=== PATIENT | female | born 2000 | race Caucasian/White ===

== ENCOUNTER 2019-12-24 00:45 | Emergency (ER) | payer BC, MEDICAID ==
[~2019-12-24] VITALS: Ht 149.9 cm; Wt 52.6 kg
[~2019-12-24 00:45] MED LIST: ALBUTEROL SULF8.5 GM INH; DIPHENHYDRAMINE25 M1 ORAL; GUAIFENESIN DM118 M1 PO; IBUPROFEN600 MG ORAL; KEFLEX250 MG ORAL; NKM; PREDNISONE20 MG ORAL; PREDNISONE20 MG PO; PROAIR HFA8.5 GM INH; RANITIDINE HCL150 MG ORAL; ZOFRAN ODT4 MG ORAL
[2019-12-24 00:59] VITALS: BP 110/70
--- NOTE | 2019-12-24 01:00 | NUR ---
ED Nurse Note: Patient walked into ED c/o multiple rashes across her body, patient states that she first noticed it about 5 days ago and has moved to different spots in her body. patient denies any drainage coming from said rashes, denies any pain. reports of said patches in her skin being warm. will wait for further orders
[2019-12-24] MEDS ORDERED: BENADRYL25 MG ORAL (01:14)
[2019-12-24] MEDS ORDERED: PREDNISONE20 MG ORAL (01:14)
[2019-12-24] MEDS ORDERED: TRIAMCINOLONE A15 G2 TP (01:14)
--- NOTE | 2019-12-24 01:15 | Emergency Room Report ---
History of Present Illness General Chief Complaint: Skin Rash/Abscess Source: Patient Present Illness [facility] This 19-year-old female with no past medical history. She presents with chief complaint of rash. Initially started on her arm but now seems to be spreading. Now it is on her abdomen and her inner thighs area. Slightly itching. Worse when she scratches. No fever chills with no drainage. Never had this problem before. Nothing anything for this. No new medication. 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 Patient History Past Medical History: see triage record, old chart reviewed Past Surgical History: none Pertinent Family History: none Social History: Denies: smoking Last Menstrual Period: 11/2019 Now: No Immunizations: other Reviewed Nursing Documentation: PMH: Agreed; PSxH: Agreed Nursing Documentation-PMH Past Medical History: No Stated History Hx Asthma: Yes Review of Systems Eye: Denies: eye pain, blurred vision ENT: Denies: ear pain, nose congestion, throat swelling Respiratory: Denies: cough, shortness of breath Cardiovascular: Denies: chest pain, palpitations Gastrointestinal: Denies: abdominal pain, diarrhea, nausea, vomiting Musculoskeletal: Denies: back pain, joint pain Skin: Reports: rash Neurological: Denies: headache, numbness Endocrine: Denies: increased thirst, increased urine Hematologic/Lymphatic: Denies: easy bruising All Other Systems: negative except mentioned in HPI Physical Exam Vital Signs Date Time Temp Pulse Resp B/P (MAP) Pulse Ox O2 Delivery O2 Flow Rate FiO2 12/24/19 00:52 99.0 83 16 108/74 (85) 97 Room Air Vitals normal Sp02 EP Interpretation: reviewed, normal General Appearance: well appearing, no apparent distress, alert Head: normocephalic, atraumatic Eyes: bilateral eye PERRL, bilateral eye EOMI ENT: hearing grossly normal, normal pharynx Neck: full range of motion, supple, no meningismus Respiratory: chest non-tender, lungs clear, normal breath sounds Cardiovascular #1: regular rate, rhythm, no murmur Gastrointestinal: normal bowel sounds, non tender, no mass, no organomegaly, no bruit, non-distended Musculoskeletal: back normal, normal range of motion, gait/station normal Psychiatric: mood/affect normal Skin: rash - She has multiple oval slightly erythematous, papulosquamous lesion on her abdominal wall in inner thighs bilaterally. Medical Decision Making Diagnostic Impression: Primary Impression: Pityriasis rosea ER Course Patient with symptoms consistent with pityriasis rosacea. No evidence of any cellulitis or abscess. Will discharge home with symptomatic treatment. Last Vital Signs Date Time Temp Pulse Resp B/P (MAP) Pulse Ox O2 Delivery O2 Flow Rate FiO2 12/24/19 00:59 99.0 80 16 110/70 97 Room Air Status: improved Disposition: HOME, SELF-CARE Condition: Stable Scripts Triamcinolone Acetonide (Triamcinolone Acetonide 0.1% Oint*) 15 Gm Oint...g. 1 ML TP NEEDED, #30 GM Prov: Jordan Alfredo MD 12/24/19 Prednisone* (PREDNISONE*) 20 Mg Tablet 40 MG ORAL DAILY, #8 TAB Prov: Jordan Alfredo MD 12/24/19 Diphenhydramine Hcl* (BENADRYL*) 25 Mg Capsule 25 MG ORAL Q6H PRN for Itching, #30 CAP Prov: Jordan Alfredo MD 12/24/19 Additional Instructions: Follow-up with In 7 days for recheck. Return if symptoms worsen. Jordan Alfredo MD Dec 24, 2019 01:14
[2019-12-24 01:25] VITALS: BP 111/78
--- NOTE | 2019-12-24 01:25 | NUR ---
ER DISCHARGE NOTE: Patient is cleared to be discharged per ERMD, pt is aox4, on room air, with stable vital signs. pt was given dc and prescription instructions, pt was able to verbalize understanding, pt id band removed. pt is able to ambulate with steady gait. pt took all belongings and accompanied by sister.
== END 2019-12-24 01:26 | disposition home or self-care (01) ==
LOC: EMR 01:12
DX: L42 Pityriasis rosea (principal)
CPT/HCPCS: 99282; J7512